=== PATIENT | male | born 1985 | race Caucasian/White ===

== ENCOUNTER 2017-10-24 18:25 | Inpatient (IN) | payer BC, OTHER ==
[2017-10-24] MEDS ORDERED: ALBU18HF2 IH (21:28)
== END 2017-10-24 20:55 | disposition short-term general hospital (02) | DRG 897 ==
LOC: SRC 19:33
PROVIDERS: ADMIT Internal Medicine; ATTEND Internal Medicine
DX: F19.239 Other psychoactive substance dependence with withdrawal, unspecified (principal); Z75.3 Unavailability and inaccessibility of health-care facilities
CPT/HCPCS: A4663

== ENCOUNTER 2017-10-24 21:06 | Inpatient (IN) | payer BC, OTHER ==
--- NOTE | 2017-10-23 23:30 | NUR ---
admitted new patient to room 221, patient more alert, confused,and forgetful,1:1 sitter at bedside for safety,patient on o2 mask 7 l/m,continue pulse ox o2 sat 92%, mild expiratory wheezes,can not keep himself still,restless but co operative with care, sinus tachy on monitor,HOB elevated,sob on exertion. Addendum: 10/25/17 at 0401 by MELQUIADES DEL RIO RN wrong date and time entry ,pls disregard.
[~2017-10-24] VITALS: Ht 180.3 cm; Wt 89.4 kg
--- NOTE | 2017-10-24 21:14 | NUR ---
Patient BIB [facility] staff for altered mental status and cough. Initial vital signs indicated that the patient's pulse oximetry was low, patient was immediately placed on high-flow O2 with poor effect. Patient A/O x2, states that he recently ingested approximately 8 oxycodone pills. To room 3A. MILAGROS notified, orders received.
[2017-10-24] MEDS ORDERED: ALBU18HF2 IH (21:28)
[2017-10-24] MEDS ORDERED: ALBUTEROL SULFATE 2.5 MG/3 ML NEBU NEB ONE (21:30)
[2017-10-24] MEDS ORDERED: NALOXONE HCL 0.4 MG/ML AMPUL IV ONE (21:30)
[2017-10-24] MEDS ORDERED: IV NORMAL SALINE 1000 ML BAG IV ONE (21:30)
[2017-10-24] MEDS ORDERED: IPRATROPIUM BROMIDE 0.5 MG/2.5 ML NEBU NEB ONE (21:30)
[2017-10-24 21:41] LABS: *BILIRUBIN,URIN NEGATIVE (NEGATIVE); *BLOOD, URINE Trace-lysed (NEGATIVE); *CLARITY,URINE SLIGHTLY CLOUDY (CLEAR); *COLOR,URINE YELLOW (YELLOW); *KETONES,URINE NEGATIVE (NEGATIVE); *PROTEIN,URINE 1+ (NEGATIVE); *UROBILINOGEN,URINE 0.2 E.U./dl (NORMAL); LEUKOCYTE ESTERASE ,URINE NEGATIVE (NEGATIVE); NITRITE, URINE NEGATIVE (NEGATIVE); UGLUCOSE NEGATIVE (NEGATIVE)
[2017-10-24] MEDS ORDERED: NALOXONE HCL 0.4 MG/ML AMPUL ONE (21:44)
[2017-10-24 21:45] LABS: RBC,URINE 0-3 /HPF (0-3); WBC,URINE 0-3 /HPF (0-3)
[2017-10-24 21:46] LABS: BACTERIA,URINE NONE SEEN /HPF (NONE SEEN); SQUAMOUS EPITHELIAL CELL,UR FEW /HPF (NONE SEEN)
[2017-10-24] MEDS ORDERED: ALBUTEROL SULFATE 2.5 MG/ 0.5 ML NEBU ONE (21:47)
[2017-10-24] MEDS ORDERED: IPRATROPIUM BROMIDE 0.5 MG/2.5 ML NEBU ONE (21:47)
[2017-10-24 21:48] LABS: *AMPHETAMINE, URINE NEGATIVE (NEGATIVE); *BARBITURATE, URINE NEGATIVE (NEGATIVE); *CANNABINOID, URINE NEGATIVE (NEGATIVE); *COCCAINE, URINE NEGATIVE (NEGATIVE); *OPIATE, URINE POSITIVE (NEGATIVE); *PHENCYCLIDINE SCREEN,URINE NEGATIVE (NEGATIVE)
[2017-10-24 21:48] LABS: BASOPHILS % (AUTO) 0.1 % (0.0-2.0); EOSINOPHILS % (AUTO) 0.1 % (0.0-7.0); HEMATOCRIT 41.2 % (40-50); HEMOGLOBIN 13.8 G/DL (14.0-18.0); LYMPHOCYTES # (AUTO) 0.9 K/UL (0.8-4.8); LYMPHOCYTES % (AUTO) 7.8 % (20.5-51.5); MEAN CORPUSCULAR HEMOGLOBIN 31.5 UUG (27.0-31.0); MEAN CORPUSCULAR HGB CONC 34 g/dL (32.0-37.0); MONOCYTES # (AUTO) 0.7 K/UL (0.1-1.30); NEUTROPHILS # (AUTO) 9.8 K/UL (1.8-8.9); PLATELET COUNT (AUTO) 198 K/UL (150-450); RED BLOOD CELL COUNT(AUTO) 4.39 MIL/UL (4.7-6.1); WHITE BLOOD COUNT (AUTO) 11.4 K/UL (4.0-11.2)
[2017-10-24 21:53] LABS: CARBON DIOXIDE 30 mmol/L (21-32); CHLORIDE 103 mmol/L (98-107); CREATININE 1.2 mg/dL (0.6-1.3); GLUCOSE 100 mg/dL (74-106); POTASSIUM 4.7 mmol/L (3.5-5.1); UREA NITROGEN, BLOOD 17 mg/dL (7-18)
--- NOTE | 2017-10-24 21:54 | NUR ---
Patient observed with unsteady gait, walking and falling in the ER. Patient had stood up and walked away from his bed without staff's knowledge causing his IV to come out. Patient assisted to restroom and IV D/C'ed. Catheter intact and site benign. Pressure and 4x4 gauze applied to site. No bleeding noted.
[2017-10-24] MEDS ORDERED: ONDANSETRON ODT 4 MG TAB.RAPDIS SL ONE (22:00)
[2017-10-24 22:05] LABS: ETHANOL < 3 MG/DL (0-0)
[2017-10-24 22:08] LABS: ALANINE AMINOTRANSFERASE 39 U/L (16-63); ALKALINE PHOSPHATASE 35 U/L (50-136); ASPARTATE AMINOTRANSFERASE 36 U/L (15-37); BILIRUBIN,DIRECT 0.2 mg/dL (0.0-0.2); BILIRUBIN,TOTAL 0.5 mg/dL (0.2-1.0); TOTAL PROTEIN, SERUM 6.4 g/dL (6.4-8.2)
[2017-10-24 22:09] LABS: ACETAMINOPHEN < 2.0 ug/mL (10-30)
[2017-10-24] MEDS ORDERED: ONDANSETRON ODT 4 MG TAB.RAPDIS ONE (22:14)
--- NOTE | 2017-10-24 22:24 | NUR ---
Patient out of bed, has been non-compliant with O2 therapy constantly moving the mask to his forehead or removing it completely. Education provided, patient is forgetful and confused.
[2017-10-24] MEDS ORDERED: NITROGLYCERIN OINT 1 GM PACKET TP ONE ×2 (22:45→22:58)
[2017-10-24] MEDS ORDERED: FUROSEMIDE 20 MG/2 ML VIAL IV ONE (22:45)
[2017-10-24] MEDS ORDERED: FUROSEMIDE 40 MG/4 ML VIAL ONE (22:59)
--- NOTE | 2017-10-24 23:11 | NUR ---
Patient continues to get out of bed and remove devices despite education, Nursing Office Correspondent notified who will obtain 1:1 sitter upon admission.
[2017-10-24] MEDS ORDERED: Z GUARD REMEDY PASTE 57 GM TUBE TOP PRN (23:45)
[2017-10-24] MEDS ORDERED: ONDANSETRON 4 MG/2 ML VIAL IV PRN (23:45)
[2017-10-24] MEDS ORDERED: MAGNESIUM HYDROXIDE 30 ML LIQUID UDC PO PRN (23:45)
--- NOTE | 2017-10-24 23:49 | NUR ---
Pt. admitted to TELE, under care of Yadiel Escobar. Belongs List completed
--- NOTE | 2017-10-24 23:50 | NUR ---
admitted new patient to room 221 with 1:1 sitter at bedside for safety,patient restless,forgetful but co operative, sinus tachy cardia on tele monitor,hob elevated placed on o2 7l/m vi mask,closely monitor.
[2017-10-25] VITALS: BP 122/65
[2017-10-25] MEDS ORDERED: LEVOFLOXACIN 500 MG/D5W 500 MG in PREMIXED 1 EACH IV SCH ×2
[2017-10-25 00:18] LABS: ABG BASE EXCESS 1.1 mmol/L; ABG HCO3 25.9 mmol/L; ABG PCO2 41.6 mmHg (35.0-45.0); ABG PH 7.412 (7.350-7.450); ABG PO2 62.9 mmHg (75.0-100.0); ABG SITE RIGHT RADIAL; ABG TOTAL HEMOGLOBIN 14.7 G/dL (13.5-18.0); COHb 2.1 % (0.5-1.5); MetHb 0.3 % (0.0-1.5); O2Hb 90.6 % (94.0-97.0)
--- NOTE | 2017-10-25 00:20 | NUR ---
ABG done pO2 62.9 ,no critical value noted,increase o2 to 8l/m via mask,patient vomited bile emesis about 50 ml,Zofran 4 mg iv admin
[2017-10-25] MEDS: ASPIRIN 325 MG TABLET PO SCH ×2 (00:26→08:19)
[2017-10-25] MEDS ORDERED: LEVOFLOXACIN 500 MG/D5W 100 ML ONE (00:35)
[2017-10-25] MEDS ORDERED: ASPIRIN 325 MG TABLET ONE (00:37)
[2017-10-25] MEDS ORDERED: ONDANSETRON 4 MG/2 ML VIAL ONE (01:10)
[2017-10-25] MEDS: ALBUTEROL SULFATE 2.5 MG/ 0.5 ML NEBU NEB SCH ×4 (01:24→19:17)
[2017-10-25] MEDS ORDERED: ALBUTEROL SULFATE 2.5 MG/ 0.5 ML NEBU ONE (01:31)
--- NOTE | 2017-10-25 03:35 | NUR ---
patient calm,asleep,closely monitor.
--- NOTE | 2017-10-25 06:00 | NUR ---
PATIENT STABLE ON O2 5L/M VIA NASAL CANNULA,BP 132/70, FREQUENT COUGHING, SPLITTING OUT, THICK, GREENISH SPUTUM ,SENT TO LAB FOR CULTURE,CONTINUE BEDSIDE TELE MONITOR,SINUS TACHY RATE 105 BPM,CONTINUE 1:1 SITTER FOR SAFETY.NO NAUSEA NOTED.
[2017-10-25 06:58] LABS: BASOPHILS % (AUTO) 0.1 % (0.0-2.0); EOSINOPHILS % (AUTO) 0.1 % (0.0-7.0); HEMATOCRIT 40.3 % (36.7-47.1); HEMOGLOBIN 13.7 g/dL (12.5-16.3); LYMPHOCYTES # (AUTO) 0.8 K/uL (20.0-40.0); LYMPHOCYTES % (AUTO) 5.9 % (20.5-51.5); MEAN CORPUSCULAR HEMOGLOBIN 32.3 uug (23.8-33.4); MEAN CORPUSCULAR HGB CONC 34 g/dL (32.5-36.3); MEAN CORPUSCULAR VOLUME 94.5 fL (73.0-96.2); MONOCYTES # (AUTO) 0.9 K/uL (2.0-10.0); MONOCYTES % (AUTO) 6.4 % (0.0-11.0); NEUTROPHILS # (AUTO) 12.1 K/uL (1.8-8.9); NEUTROPHILS % (AUTO) 87.5 % (38.5-71.5); PLATELET COUNT (AUTO) 197 K/uL (152-348); RED BLOOD CELL COUNT(AUTO) 4.26 MIL/uL (4.06-5.63); WHITE BLOOD COUNT (AUTO) 13.9 K/uL (3.6-10.2)
[2017-10-25 07:31] LABS: CREATININE 1.1 mg/dL (0.6-1.3); MAGNESIUM 1.7 mg/dL (1.8-2.4); PHOSPHOROUS 2.9 mg/dL (2.5-4.9); POTASSIUM 3.6 mmol/L (3.5-5.1)
[2017-10-25] MEDS: IPRATROPIUM BROMIDE 0.5 MG/2.5 ML NEBU NEB SCH ×3 (07:40→19:17)
[2017-10-25 08:23] LABS: THYROID STIMULATING HORMONE 0.123 mIU/mL (0.358-3.740)
[2017-10-25 11:12] VITALS: BP 133/78
--- NOTE | 2017-10-25 11:58 | NUR ---
CLINICAL PHARMACY NOTE:VANCOMYCIN DOSING Request for vancomycin dosing on 32 y/o male 5'11" 197 lbs for possible pneumonia Temp 100.3 BUN 17 Scr 1.1 WBC 13.9 also on Zosyn and Levaquin start vancomycin 1250mg IVPB q10h estimated trough 14.66. Will order trough level prior to 4th dose. Will continue to monitor.
[2017-10-25 12:13] LABS: ABG HCO3 26.1 mmol/L; ABG PCO2 39.1 mmHg (35.0-45.0); ABG PH 7.443 (7.350-7.450); ABG PO2 58.2 mmHg (75.0-100.0); ABG SITE RIGHT RADIAL; ABG TOTAL HEMOGLOBIN 14.2 G/dL (13.5-18.0); COHb 1.4 % (0.5-1.5); MetHb 0.4 % (0.0-1.5); O2Hb 89.7 % (94.0-97.0); VENT MODE Nasal Cannula
[2017-10-25] MEDS: PIPERACILLIN SODIUM/TAZOBACTAM 4.5 G in IV DEXTROSE 5% 50 ML IV SCH ×2 (12:36→20:05)
[2017-10-25] MEDS: VANCOMYCIN IV 1,250 MG in IV DEXTROSE 5% 500 ML IV SCH ×2 (13:52→23:27)
--- NOTE | 2017-10-25 14:46 | NUR ---
PT PLACED ON HIGH FLOW NASAL CANNULA 40LPM, 70% FIO2 POST ABG. SOB AND MODERATE ACCESSORY MUSCLE USE NOTED. RN NOTIFIED. WILL CONTINUE TO MONITOR AND TITRATE HIGH FLOW TOLERATED.
[2017-10-25] MEDS: MAGNESIUM SULFATE/D5W 100 ML IV SCH ×2 (15:59→16:53)
--- NOTE | 2017-10-25 18:32 | NUR ---
PT PLACED ON HIGH FLOW NASAL CANNULA POST ABG. SOB AND MODERATE ACCESSORY MUSCLE USE NOTED. PT SAT 99% IN NO ACUTE DISTRESS AT THIS TIME, ALL SAFETY AND COMFORT MEASURES MAINTAINED THROUGHOUT SHIFT, 1:1 SITTER FOR SAFETY, CALL LIGHT IN REACH
--- NOTE | 2017-10-25 19:45 | NUR ---
PATIENT AWAKE IN BED, WATCHING TV. SITTER AT BEDSIDE FOR SAFETY. DENIES PAIN OR DISCOMFORT. ON HIGH PRESSURE O2. H/L INTACT AND PATENT. CALL LIGHT IN REACH. ALL NEEDS ATTENDED.
[2017-10-25] MEDS ORDERED: IV NORMAL SALINE 250 ML IV ONE (19:46)
[2017-10-25] MEDS ORDERED: IOHEXOL 350 100 ML INFUS..BTL ONE (19:46)
[2017-10-25] MEDS ORDERED: NORMAL SALINE FLUSH 10 ML DISP.SYRIN ONE (19:46)
[2017-10-25 20:30] VITALS: BP 121/74
--- NOTE | 2017-10-25 20:45 | NUR ---
PATIENTS TEMPERATURE 101.7. PATIENT GIVEN TYLENOL 650MG PO PRN FOR FEVER AND COOLING MEASURES APPLIED. WILL CONTINUE TO MONITOR.
[2017-10-25] MEDS: ACETAMINOPHEN 325 MG TABLET PO PRN (20:47)
[2017-10-25] MEDS: LACTOBACILLUS RHAMNOSUS GG 1 EACH CAPSULE PO SCH (20:47)
--- NOTE | 2017-10-25 22:00 | NUR ---
PATIENTS TEMPERATURE TRENDING DOWN. NOTIFIED ZABRINA MICHELLE THAT PATIENT HAS BEEN RUNNING FEVER. PATIENT IS GOING FOR CTA ANGIO AND WILL BLOOD CULTURES DONE ONCE BACK. SIGNS CLEANER NOTIFIED.
[2017-10-26] MEDS: IPRATROPIUM BROMIDE 0.5 MG/2.5 ML NEBU NEB SCH ×4 (00:49→19:21)
[2017-10-26] MEDS: ALBUTEROL SULFATE 2.5 MG/ 0.5 ML NEBU NEB SCH ×4 (00:49→19:21)
[2017-10-26] MEDS: LEVOFLOXACIN 500 MG/D5W 500 MG in PREMIXED 1 EACH IV SCH (01:31)
[2017-10-26 04:00] VITALS: BP 128/83
--- NOTE | 2017-10-26 04:15 | NUR ---
PATIENT AWAKE IN BED. DENIES ANY SOB. FEVER 102.9. PATIENT GIVEN TYLENOL 650MG PO PRN FOR TEMPERATURE AND COOLING MEASURES APPLIED. DENIES PAIN OR DISCOMFORT. CONTINUED ON HIGH FLOW O2. CALL LIGHT IN REACH. ALL NEEDS ATTENDED. WILL CONTINUE TO MONITOR AND ASSESS.
[2017-10-26] MEDS: ACETAMINOPHEN 325 MG TABLET PO PRN (04:17)
[2017-10-26] MEDS: PIPERACILLIN SODIUM/TAZOBACTAM 4.5 G in IV DEXTROSE 5% 50 ML IV SCH ×3 (04:28→19:59)
--- NOTE | 2017-10-26 06:00 | NUR ---
PATIENT REMAINS SR ON TELE. WILL CONTINUE TO MONITOR.
[2017-10-26 06:35] LABS: POTASSIUM 3.2 mmol/L (3.5-5.1)
[2017-10-26 08:00] VITALS: BP 119/78
[2017-10-26] MEDS: LACTOBACILLUS RHAMNOSUS GG 1 EACH CAPSULE PO SCH ×2 (08:23→20:37)
[2017-10-26] MEDS: ASPIRIN 325 MG TABLET PO SCH (08:24)
[2017-10-26] MEDS: VANCOMYCIN IV 1,250 MG in IV DEXTROSE 5% 500 ML IV SCH (08:26)
[2017-10-26 11:25] VITALS: BP 115/98
[2017-10-26] MEDS: HYDROCODONE/APAP 5-325MG TABLET PO PRN (11:33)
[2017-10-26] MEDS: methylPREDNISolone SOD SUCC 125 MG/2 ML VIAL IV SCH ×2 (14:10→21:12)
--- NOTE | 2017-10-26 14:24 | NUR ---
CLINICAL PHARMACY NOTE:VANCOMYCIN DOSING Subjective: to continue vancomycin dosing on 32 y/o male '" 197 lbs for possible pneumonia Objective: height 5''' weight 197 lbs Temp 102.9 BUN 15 Scr 1.0 WBC 13.9 (10/25) Trough pending today at 1830 Assessment/Plan Will continue vancomycin 1250mg IVPB q10h estimated trough 14.66. Trough due tonight at 1830. Will check trough and adjust as needed. Will continue to monitor. Addendum: 10/26/17 at 2031 by BRENDON MCGOWAN ADM VANCOMYCIN TROUGH @ 18:30 WAS 5.9 INCREASED DOSE TO 1500 AND CHANGED FREQUENCY TO Q8H. REORDERED ANOTHER TROUGH PRIOR TO 4TH DOSE 10/27 @ 20:30 WILL CONTINUE TO FOLLOW
[2017-10-26 15:21] VITALS: BP 118/75
--- NOTE | 2017-10-26 15:38 | NUR ---
CONTINUE WITH PAIN MANAGEME, NO SIGNS OF PAIN OR DISTRESS
[2017-10-26] MEDS ORDERED: POTASSIUM CHLORIDE 20 MEQ TAB.PRT.SR PO ONE (16:15)
--- NOTE | 2017-10-26 16:56 | NUR ---
PT REMAINS ON HIGH FLOW NASAL CANNULA, ABLE TO TITRATE TO 35 LPM, 50% FIO2. PT TOLERATING WELL AT THIS TIME. WILL CONTINUE TO MONITOR.
[2017-10-26 19:39] VITALS: BP 132/84
--- NOTE | 2017-10-26 20:00 | NUR ---
RECEIVED PATIENT AWAKE IN BED, WITH SITTER AT BEDSIDE. PATIENT IS A/O X3. DENIES PAIN OR DISCOMFORT. DENIES ANY SOB. ON O2 HIGH FLOW. NO RESP. DISTRESS NOTED. ON TELE SR. VSS. H/L INTACT AND PATENT, NOTED TO RIGHT FA #20 GAUGE. BED ALARM ON. CALL LIGHT IN REACH. ALL NEEDS ATTENDED. WILL CONTINUE TO MONITOR.
[2017-10-26] MEDS: VANCOMYCIN IV 1,500 MG in IV DEXTROSE 5% 500 ML IV SCH (20:57)
[2017-10-27] VITALS: BP 134/82
[2017-10-27] MEDS: IPRATROPIUM BROMIDE 0.5 MG/2.5 ML NEBU NEB SCH ×4 (00:54→19:16)
[2017-10-27] MEDS: ALBUTEROL SULFATE 2.5 MG/ 0.5 ML NEBU NEB SCH ×4 (00:54→19:16)
[2017-10-27] MEDS: PIPERACILLIN SODIUM/TAZOBACTAM 4.5 G in IV DEXTROSE 5% 50 ML IV SCH ×3 (03:59→20:14)
[2017-10-27 04:00] VITALS: BP 99/62
[2017-10-27] MEDS: VANCOMYCIN IV 1,500 MG in IV DEXTROSE 5% 500 ML IV SCH ×3 (04:05→21:21)
[2017-10-27] MEDS: methylPREDNISolone SOD SUCC 125 MG/2 ML VIAL IV SCH ×3 (05:10→21:21)
--- NOTE | 2017-10-27 06:06 | NUR ---
PATIENT AWAKE IN BED. SITTER AT BEDSIDE. SLEPT AT INTERVALS THROUGHOUT THE NIGHT. VSS. AFEBRILE. DENIES PAIN OR DISCOMFORT. NO RESP. DISTRESS NOTED, CONTINUED ON O2 HIGH FLOW. ON TELE SR. CALL LIGHT IN REACH. ALL NEEDS ATTENDED. WILL CONTINUE TO MONITOR.
[2017-10-27 06:07] LABS: *BASOS 0 % (Not Estab.); *COMMENTS Note: (.); *EOS 0 % (Not Estab.); *HCT 41.2 % (37.5-51.0); *HGB 13.8 g/dL (13.0-17.7); *IMMATURE GRANULOCYTES 0.1 x10E3/uL (0.0-0.1); *IMMATURE GRANULOCYTES 1 % (Not Estab.); *LYMPHOCYTES 7 % (Not Estab.); *LYMPHOCYTES ABSOLUTE 0.9 x10E3/uL (0.7-3.1); *MCH 32.2 pg (26.6-33.0); *MCHC 33.5 g/dL (31.5-35.7); *MCV 96 fL (79-97); *MONOCYTES 7 % (Not Estab.); *NEUTROPHILS 85 % (Not Estab.); *NEUTROPHILS ABSOLUTE 12.3 x10E3/uL (1.4-7.0); *PLT 201 x10E3/uL (150-379); *RBC 4.29 x10E6/uL (4.14-5.80); *RDW 13.7 % (12.3-15.4); *WBC 14.3 x10E3/uL (3.4-10.8)
[2017-10-27 07:17] LABS: CREATININE 1.1 mg/dL (0.6-1.3); POTASSIUM 3.6 mmol/L (3.5-5.1)
--- NOTE | 2017-10-27 08:00 | NUR ---
Awake, alert, oriented x 4. On high flow O2 with O2 sat of 93%. 1:1 sitter at bedside
[2017-10-27] MEDS: ASPIRIN 325 MG TABLET PO SCH (09:07)
[2017-10-27] MEDS: LACTOBACILLUS RHAMNOSUS GG 1 EACH CAPSULE PO SCH ×2 (09:08→20:23)
--- NOTE | 2017-10-27 12:00 | NUR ---
Did not eat lunch. Noted decreased in O2 sat when flat on bed. Maintained on high flow O2 at 35L/NC at 55% FIO2 with O2 sat of 91-93%
[2017-10-27 12:08] LABS: *HELPER T-LYMPH MARKR(CD4)ABSO 239 /uL (359-1519); *HELPER T-LYNPH MARKER CD4)% 26.6 % (30.8-58.5)
--- NOTE | 2017-10-27 14:57 | NUR ---
CLINICAL PHARMACY NOTE:VANCOMYCIN DOSING Subjective: to continue vancomycin dosing on 32 y/o male 5'11" 197 lbs for possible pneumonia Objective: height 5''' weight 197 lbs Temp 99.7 BUN 17 Scr 1.1 WBC 14.3 (10/25) trough pending tonight 2029 Assessment/Plan Will continue schedule of 1500mg q8hr today with trough pending tonight at 2029. Rn endorsed to hold if trough >20. Will check trough in am and adjust as needed. Will continue to follow VANCOMYCIN TROUGH @ 18:30 WAS 5.9 INCREASED DOSE TO 1500 AND CHANGED FREQUENCY TO Q8H. REORDERED ANOTHER TROUGH PRIOR TO 4TH DOSE 10/27 @ 20:30 WILL CONTINUE TO FOLLOW Addendum: 10/27/17 at 1503 by JIMBO FELDER please disregard note in all caps, was from previous note
--- NOTE | 2017-10-27 18:27 | NUR ---
Ate some dinner, poor appetite. High flow O2 at 35L with O2 sat of 92%. 1:1 sitter at bedside
[2017-10-27 20:00] VITALS: BP 121/75
--- NOTE | 2017-10-27 20:00 | NUR ---
patient on high flow o2 ,50%,at 35l/m tolerated well no sob noted,pulse ox monitor at bedside,patient calm and co operative, forgetful, 1:1 sitter at bedside for safety,closely monitor.
[2017-10-27] MEDS: HYDROCODONE/APAP 5-325MG TABLET PO PRN (23:49)
[2017-10-27] MEDS: LEVOFLOXACIN 500 MG/D5W 500 MG in PREMIXED 1 EACH IV SCH ×3 (23:49)
[2017-10-28] MEDS: IPRATROPIUM BROMIDE 0.5 MG/2.5 ML NEBU NEB SCH ×4 (01:00→20:31)
[2017-10-28] MEDS: ALBUTEROL SULFATE 2.5 MG/ 0.5 ML NEBU NEB SCH ×4 (01:00→20:32)
[2017-10-28] MEDS: PIPERACILLIN SODIUM/TAZOBACTAM 4.5 G in IV DEXTROSE 5% 50 ML IV SCH ×3 (03:23→20:00)
[2017-10-28] MEDS: VANCOMYCIN IV 1,500 MG in IV DEXTROSE 5% 500 ML IV SCH ×3 (04:32→18:12)
[2017-10-28 05:00] VITALS: BP 113/63
[2017-10-28] MEDS: methylPREDNISolone SOD SUCC 125 MG/2 ML VIAL IV SCH (05:48)
--- NOTE | 2017-10-28 07:00 | NUR ---
Patient still on high flow O2 via NC, tolerating well. IV antibiotic tolerated, IV line intact & patent. Fairly rested but no acute resp distress. 1:1!sitter in room for patient's safety.
[2017-10-28 08:00] VITALS: BP 118/62
[2017-10-28] MEDS: LACTOBACILLUS RHAMNOSUS GG 1 EACH CAPSULE PO SCH ×2 (09:34→21:54)
[2017-10-28] MEDS: ASPIRIN 325 MG TABLET PO SCH (09:34)
--- NOTE | 2017-10-28 11:15 | NUR ---
CLINICAL PHARMACY NOTE:VANCOMYCIN DOSING Subjective: to continue vancomycin dosing on 32 y/o male 5'11" 197 lbs for possible pneumonia Objective: height 5'11'' weight 197 lbs Temp 98.2 BUN 17(10/27) Scr 1.1(10/27) WBC 14.3 (10/25) Vancomycin trough 12.9 10/27 at 2030 Assessment/Plan Since Vancomycin trough is under 15, will increase dose to 1500mg IV every 7 hrs(second dose today at 1200) and draw trough by 4th dose(ordered for tomorrow at 0130) for expected trough around 16. Will monitor and follow daily.
[2017-10-28 11:28] LABS: CREATININE 1.1 mg/dL (0.6-1.3); POTASSIUM 3.6 mmol/L (3.5-5.1)
[2017-10-28 11:39] LABS: BASOPHILS % (AUTO) 0.2 % (0.0-2.0); HEMATOCRIT 40.1 % (36.7-47.1); HEMOGLOBIN 13.6 g/dL (12.5-16.3); LYMPHOCYTES # (AUTO) 2.2 K/uL (20.0-40.0); LYMPHOCYTES % (AUTO) 13.6 % (20.5-51.5); MEAN CORPUSCULAR HEMOGLOBIN 31.8 uug (23.8-33.4); MEAN CORPUSCULAR HGB CONC 34 g/dL (32.5-36.3); MEAN CORPUSCULAR VOLUME 93.8 fL (73.0-96.2); MONOCYTES % (AUTO) 12.7 % (0.0-11.0); NEUTROPHILS # (AUTO) 11.7 K/uL (1.8-8.9); NEUTROPHILS % (AUTO) 73.5 % (38.5-71.5); PLATELET COUNT (AUTO) 204 K/uL (152-348); RED BLOOD CELL COUNT(AUTO) 4.28 MIL/uL (4.06-5.63)
[2017-10-28 12:19] LABS: BAND % (MANUAL) 5 % (0-10); LYMPHOCYTES % (MANUAL) 13 % (20-40); MONOCYTES % (MANUAL) 13 % (2-10); MYELOCYTES % 1 % (0-0); NEUTROPHILS % (MANUAL) 68 % (42-75)
[2017-10-28] MEDS ORDERED: methylPREDNISolone SOD SUCC 125 MG/2 ML VIAL IV SCH (14:00)
[2017-10-28] MEDS: methylPREDNISolone SOD SUCC 40 MG/ML VIAL IV SCH ×2 (14:11→21:54)
--- NOTE | 2017-10-28 19:38 | NUR ---
PT IS CALM, COOPERATIVE, CONFUSED, THINKS THAT A PHONE WAS LOST BUT PT HAS NO PHONE DOCUMENTED ON THE BELONGINGS LIST. PT TEACHING ABOUT VANCOMYCIN WAS GIVEN. PT VERBALIZES UNDERSTANDING AND ALLOWS CARE. PT STABLE VITAL SIGNS.
[2017-10-28 20:00] VITALS: BP 124/78
--- NOTE | 2017-10-28 23:54 | NUR ---
PT ON CONT HIGH FLOW SYSTEM WITH NASAL CANNULA @ 50% @ 35L/M , DOING WELL, WITH SAT 94-97%, WITH NO RESP. DISTRESS NOTED, PULSE OXY AT BEDSIDE , HR GETS LOW 49 WHEN PATIENT FALLS ASLEEP, BUT DOING WELL, SITTER PRESENT. Sandra GOLDBERGP Addendum: 10/28/17 at 2356 by CORY OTERO RT Amended: Links added.
[2017-10-29] MEDS: LEVOFLOXACIN 500 MG/D5W 500 MG in PREMIXED 1 EACH IV SCH (00:28)
[2017-10-29] MEDS: IPRATROPIUM BROMIDE 0.5 MG/2.5 ML NEBU NEB SCH ×4 (01:30→19:31)
[2017-10-29] MEDS: ALBUTEROL SULFATE 2.5 MG/ 0.5 ML NEBU NEB SCH ×4 (01:30→19:31)
[2017-10-29] MEDS: VANCOMYCIN IV 1,500 MG in IV DEXTROSE 5% 500 ML IV SCH ×4 (02:00→23:54)
[2017-10-29] MEDS: PIPERACILLIN SODIUM/TAZOBACTAM 4.5 G in IV DEXTROSE 5% 50 ML IV SCH ×3 (03:45→21:00)
[2017-10-29 04:00] VITALS: BP 120/68
[2017-10-29] MEDS: methylPREDNISolone SOD SUCC 40 MG/ML VIAL IV SCH ×3 (05:13→21:00)
[2017-10-29 08:00] VITALS: BP 121/74
[2017-10-29] MEDS: LACTOBACILLUS RHAMNOSUS GG 1 EACH CAPSULE PO SCH ×2 (09:22→21:00)
[2017-10-29] MEDS: ASPIRIN 325 MG TABLET PO SCH (09:22)
--- NOTE | 2017-10-29 11:35 | NUR ---
CLINICAL PHARMACY NOTE:VANCOMYCIN DOSING Subjective: to continue vancomycin dosing on 32 y/o male 5'11" 197 lbs for possible pneumonia Objective: height 5'11'' weight 197 lbs Temp 99.3 BUN 17(10/27) Scr 1.1(10/27) WBC 14.3 (10/25) Vancomycin trough 15.1 Assessment/Plan Since Vancomycin trough within therapeutic range, will continue same dose of vanco 1500mg IV every 7 hrs for today. Will monitor and follow daily.
--- NOTE | 2017-10-29 16:24 | NUR ---
PATIENT BEEN ASKING FOR HIS BELONGINGS DURING THE DAY. I CHECKED THE BELONGINGS LIST FROM ADMISSION AND IT ONLY STATES HIS CLOTHING THAT HE HAS ON HIS ROOM. PATIENT VERBALIZED THAT HE DROVE TO THE HOSOITAL ON HIS BUIK WHICH IT IS PARKED ON THE PARKING STRUCTURE, AND HE IS CONCERN THAT HIS CELLPHONE, KEYS AND WALLET HAVE BEEN LOST. HE IS BECOMING ANXIOUS PER RADHA VILA. I CALLED [facility] THREE TIMES, AND THEY HAVE NOT GAVE AN ANSWER SINCE THE NOON. FINALLY, I TALKED TO CHARGE NURSE AND ASKED FOR HER HELP, SHE SAID THEY WILL GO AND LOOK FOR IT ON THE STORAGE, THAT WAS 1615.
--- NOTE | 2017-10-29 16:57 | NUR ---
[facility] CHARGE NURSE CALLED CONFIRMING THAT THERE IS NO CELL PHONE, WALLET AND CAR KEYS ON HIS BELONGINGS. IT IS ALSO STATED ON THE BELONGING LIST. PATIENT STATED THAT HE DROVE HIMSELF ON HIS BUICK WHITE CAR. I CALLED [facility] TO CHECK THE CAR ON THE PARKING LOT, AND THERE IS NO CAR. I TRIED TO CALL FAMILY, THERE IS NO FAMILY NUMBER TO CALL. JACOB CHARGE NURSE AWARE.
[2017-10-29 17:00] VITALS: BP 119/65
--- NOTE | 2017-10-29 18:31 | NUR ---
PATIENT HAV BEEN IN BED WATCHING, A LITTLE ANXIOUS ABOUT HIS BELONGINGS. WE NEED TO CONTINUE REMINDING HIM TO KEEP HIS NC ON PLACE. SAFETY WAS PROVIDED DURING THE DAY, ALL NEEDS MET BY THE STAFF. WILL CONTINUE MONITORING.
--- NOTE | 2017-10-29 19:45 | NUR ---
PATIENT ALERT WITH EPISODE OF ANXIETY, LOOK FOR HIS BELONGINGS SUCH CAR KEYS, PATIENT STATED THAT HE DROVE HIMSELF IN TO BE ADMITTED TO [facility], AND HIS CAR IS WHITE SAR[place], AM RN DROVE AROUND THE PARKING LOT AND NOT FIND THE PATIENT CAR, CALLED [facility] AND STATED THAT PATIENT DID NOT DROVE HIMSELF, AND THEY DONT HAVE HIS KEYS. CONT TO REORIENT PATIENT. CONT 1;1 SITTER FOR SAFETY.
[2017-10-29 20:00] VITALS: BP 144/72
[2017-10-30] MEDS: LEVOFLOXACIN 500 MG/D5W 500 MG in PREMIXED 1 EACH IV SCH (00:22)
[2017-10-30] MEDS: IPRATROPIUM BROMIDE 0.5 MG/2.5 ML NEBU NEB SCH ×4 (00:49→19:44)
[2017-10-30] MEDS: ALBUTEROL SULFATE 2.5 MG/ 0.5 ML NEBU NEB SCH ×4 (00:49→19:43)
[2017-10-30] MEDS: HYDROCODONE/APAP 5-325MG TABLET PO PRN (01:51)
[2017-10-30] MEDS: PIPERACILLIN SODIUM/TAZOBACTAM 4.5 G in IV DEXTROSE 5% 50 ML IV SCH ×3 (04:37→20:45)
[2017-10-30] MEDS: VANCOMYCIN IV 1,500 MG in IV DEXTROSE 5% 500 ML IV SCH ×3 (05:13→21:44)
[2017-10-30] MEDS: methylPREDNISolone SOD SUCC 40 MG/ML VIAL IV SCH ×3 (05:43→21:56)
[2017-10-30 06:37] VITALS: BP 107/71
--- NOTE | 2017-10-30 07:00 | NUR ---
PATIENT SLEPT ON AND OFF, STILL WITH CONFUSION, KEPT LOOKING FOR HIS BELONGINGS CONT TO ORIENT, CONT 1;1 SITTER. FOR SAFETY. PATIENT EXPRESS ON LEAVING THE FACILITY TO LOOK FOR HIS CAR. CONT TO MONITOR.
--- NOTE | 2017-10-30 07:30 | NUR ---
RECEIVED PATIENT AWAKE IN BED, WITH SITTER AT BEDSIDE. PATIENT IS A/O X3. DENIES PAIN OR DISCOMFORT. DENIES ANY SOB. ON O2 NO RESP. DISTRESS NOTED.H/L INTACT AND PATENT, BED ALARM ON. CALL LIGHT IN REACH. ALL NEEDS ATTENDED. WILL CONTINUE TO MONITOR.
[2017-10-30] MEDS: ASPIRIN 325 MG TABLET PO SCH (08:04)
[2017-10-30] MEDS: LACTOBACILLUS RHAMNOSUS GG 1 EACH CAPSULE PO SCH ×2 (08:04→21:56)
[2017-10-30 11:06] LABS: BASOPHILS % (AUTO) 0.2 % (0.0-2.0); EOSINOPHILS % (AUTO) 0.2 % (0.0-7.0); HEMATOCRIT 43.1 % (36.7-47.1); HEMOGLOBIN 14.4 g/dL (12.5-16.3); LYMPHOCYTES # (AUTO) 1.7 K/uL (20.0-40.0); LYMPHOCYTES % (AUTO) 12.6 % (20.5-51.5); MEAN CORPUSCULAR HEMOGLOBIN 31.9 uug (23.8-33.4); MEAN CORPUSCULAR HGB CONC 33 g/dL (32.5-36.3); MEAN CORPUSCULAR VOLUME 95.5 fL (73.0-96.2); MONOCYTES # (AUTO) 0.9 K/uL (2.0-10.0); MONOCYTES % (AUTO) 6.8 % (0.0-11.0); NEUTROPHILS # (AUTO) 10.7 K/uL (1.8-8.9); NEUTROPHILS % (AUTO) 80.2 % (38.5-71.5); PLATELET COUNT (AUTO) 224 K/uL (152-348); RED BLOOD CELL COUNT(AUTO) 4.51 MIL/uL (4.06-5.63); WHITE BLOOD COUNT (AUTO) 13.4 K/uL (3.6-10.2)
[2017-10-30 11:15] LABS: CREATININE 1.1 mg/dL (0.6-1.3)
[2017-10-30 11:47] LABS: BAND % (MANUAL) 4 % (0-10); EOSINOPHILS % (MANUAL) 1 % (0-8); LYMPHOCYTES % (MANUAL) 15 % (20-40); METAMYELOCYTES % 1 % (0-1); MONOCYTES % (MANUAL) 8 % (2-10); MYELOCYTES % 2 % (0-0); NEUTROPHILS % (MANUAL) 69 % (42-75)
[2017-10-30 12:12] VITALS: BP 115/67
--- NOTE | 2017-10-30 13:34 | NUR ---
CLINICAL PHARMACY NOTE:VANCOMYCIN DOSING Subjective: to continue vancomycin dosing on 32 y/o male 5'11" 197 lbs for possible pneumonia Objective: height 5'11'' weight 197 lbs Temp 98.2 BUN 17(10/27) Scr 1.1(10/27) WBC 14.3 (10/25) Assessment/Plan Will continue same dose of vanco 1500mg IV every 7 hrs for today. Will monitor and follow daily.
[2017-10-30 15:51] VITALS: BP 126/75
--- NOTE | 2017-10-30 19:00 | NUR ---
PATIENT AWAKE, VERY RESPONSIVE, PATIENT MORE ALERT THIS EVENING, WATCHING TV, CONT ON 1;1 SITTER, PATIENT HAS EPISODE OF COUGHING, CONT HHN TX PER ORDER, DENIES PAIN AT THIS TIME. CONT 1;1 SITTER.
[2017-10-30 20:24] VITALS: BP 110/68
[2017-10-31] MEDS: HYDROCODONE/APAP 5-325MG TABLET PO PRN (00:11)
[2017-10-31] MEDS: LEVOFLOXACIN 500 MG/D5W 500 MG in PREMIXED 1 EACH IV SCH (00:47)
--- NOTE | 2017-10-31 01:00 | NUR ---
PATIENT NOTED WITH RESTLESS, MEDICATED FOR PAIN DUE TO COMPLAIN OF PAIN ON BACK, GIVEN FOOD AND JUICES, ASSISTED WITH TOILETING FOR COMFORT, CONT ON 1;1 SITTER FOR SAFETY, PATIENT LOOKING FOR BELONGINGS AGAIN, REORIENT PATIENT THAT BELONGINGS WAS AT HIS POSSESSION, SITTER WALKED PATIENT IN HALLWAYS, CONT TO MONITOR.
[2017-10-31] MEDS: IPRATROPIUM BROMIDE 0.5 MG/2.5 ML NEBU NEB SCH ×5 (01:48→19:07)
[2017-10-31] MEDS: ALBUTEROL SULFATE 2.5 MG/ 0.5 ML NEBU NEB SCH ×5 (01:48→19:07)
[2017-10-31] MEDS: PIPERACILLIN SODIUM/TAZOBACTAM 4.5 G in IV DEXTROSE 5% 50 ML IV SCH ×3 (03:28→20:21)
[2017-10-31] MEDS: VANCOMYCIN IV 1,500 MG in IV DEXTROSE 5% 500 ML IV SCH ×3 (04:10→16:43)
[2017-10-31] MEDS ORDERED: LORAZEPAM 2 MG/1 ML VIAL IV ONE (04:30)
--- NOTE | 2017-10-31 04:44 | NUR ---
PATIENT RESTLESS, AND AGITATED, PULLED IV LINES, WANTING TO GO HOME, NOTIFY DR. FIGUEREDO WITH ORDER, CONT 1;1 SITTER FOR SAFETY.
[2017-10-31] MEDS: methylPREDNISolone SOD SUCC 40 MG/ML VIAL IV SCH ×3 (06:12→20:16)
[2017-10-31 06:13] LABS: ABG BASE EXCESS -2.8 mmol/L; ABG HCO3 20.9 mmol/L; ABG PCO2 33.4 mmHg (35.0-45.0); ABG PH 7.415 (7.350-7.450); ABG PO2 60.4 mmHg (75.0-100.0); ABG SITE RIGHT BRACHIAL; ABG TOTAL HEMOGLOBIN 14.2 G/dL (13.5-18.0); MetHb 0.1 % (0.0-1.5); O2Hb 90.2 % (94.0-97.0); VENT MODE Nasal Cannula
[2017-10-31 06:14] VITALS: BP 132/71
[2017-10-31 08:00] VITALS: BP 132/71
[2017-10-31] MEDS: ASPIRIN 325 MG TABLET PO SCH (08:09)
[2017-10-31] MEDS: LACTOBACILLUS RHAMNOSUS GG 1 EACH CAPSULE PO SCH ×2 (08:09→20:16)
--- NOTE | 2017-10-31 10:01 | NUR ---
PATIENT STILL HAS EPISODE OF CONFUSION AND ANXIETY, CONT TO REORIENT THE PATIENT, CONT 1;1 SITTER FOR SAFETY, NO COMPLAIN OF PAIN, REORIENT PATIENT NOT TO PULLED HIS IV LINES. CONT TO MONITOR, OXYGEN 2LITER NC, OXYGEN SAT 93-97% CONT TO MONITOR.
[2017-10-31 11:26] VITALS: BP 126/79
--- NOTE | 2017-10-31 14:04 | NUR ---
CLINICAL PHARMACY NOTE:VANCOMYCIN DOSING Subjective: to continue vancomycin dosing on 32 y/o male 5'11" 197 lbs for possible pneumonia Objective: height 5'11'' weight 197 lbs Temp 98.5 BUN 17(10/27) Scr 1.1(10/27) WBC 14.3 (10/25) Assessment/Plan Will continue same dose of vanco 1500mg IV every 7 hrs for today. Will monitor and follow daily.
--- NOTE | 2017-10-31 14:41 | NUR ---
PT WALK IN THE HALLWAY WITHOUT O2 ,TOLERATED WELL.
[2017-10-31 15:29] VITALS: BP 109/70
--- NOTE | 2017-10-31 19:00 | NUR ---
RECEIVED PATIENT AWAKE STILL CONFUSED, LOOKING FOR HIS BELONGINGS AGAIN, REORIENT PATIENT THAT BELONGINGS IS WITH HIS , PATIENT HAS ERRATIC MOVEMENT, GETS UP LOOKS FOR THINGS, CAUSING IV LINE TO PULLED OUT OR DISLODGE, REORIENT PATIENT, PATIENT WILL COOPERATE FOR FEW MINUTES BUT WILL CONTINUE THE RESTLESSNESS BEHAVIOR, CONT ON 1;1 SITTER. OXYGEN SAT WNL AT 2LITERS NC, CONT TO MONITOR.
[2017-10-31 21:02] VITALS: BP 123/70
[2017-11-01] MEDS: LEVOFLOXACIN 500 MG/D5W 500 MG in PREMIXED 1 EACH IV SCH (00:10)
[2017-11-01] MEDS ORDERED: VANCOMYCIN HCL 500 MG VIAL ONE ×2 (00:29→00:52)
[2017-11-01] MEDS ORDERED: VANCOMYCIN 1000 MG VIAL ONE ×2 (00:29→00:52)
[2017-11-01] MEDS: VANCOMYCIN IV 1,500 MG in IV DEXTROSE 5% 500 ML IV SCH ×3 (00:29→14:13)
[2017-11-01] MEDS: IPRATROPIUM BROMIDE 0.5 MG/2.5 ML NEBU NEB SCH ×3 (01:17→14:23)
[2017-11-01] MEDS: ALBUTEROL SULFATE 2.5 MG/ 0.5 ML NEBU NEB SCH ×3 (01:17→14:23)
--- NOTE | 2017-11-01 01:30 | NUR ---
PATIENT SLEPT ON AND OFF, NO COMPLAIN OF PAIN, NO SOB NO CHEST PAIN NO CONGESTION, WITH EPISODE OF NON PRODUCTIVE COUGH, ASSISTED WITH TOILETING, STILL CONFUSED CONTINUE TO REORIENT THE PATIENT. CONT 1;1 SITTER FOR SAFETY.
[2017-11-01] MEDS: PIPERACILLIN SODIUM/TAZOBACTAM 4.5 G in IV DEXTROSE 5% 50 ML IV SCH ×2 (04:37→12:29)
[2017-11-01 06:43] VITALS: BP 124/75
[2017-11-01] MEDS: methylPREDNISolone SOD SUCC 40 MG/ML VIAL IV SCH (08:40)
[2017-11-01] MEDS: LACTOBACILLUS RHAMNOSUS GG 1 EACH CAPSULE PO SCH (08:40)
[2017-11-01] MEDS ORDERED: PRED50TA PO (10:15)
[2017-11-01] MEDS ORDERED: LEVO750T21 PO (10:15)
[2017-11-01] MEDS ORDERED: IPRA0.2S6 NEB (10:15)
[2017-11-01] MEDS ORDERED: LACT1CAP57 PO (10:15)
[2017-11-01] MEDS: HYDROCODONE/APAP 5-325MG TABLET PO PRN (10:19)
--- NOTE | 2017-11-01 10:50 | NUR ---
PT'S 1:1 SITTER VERBALIZED TO ME THAT THE PT'S O2 SAT IS 86%, " I CHECKED THE O2 TWICE". PT APPEARS CALM, PINK, NO SIGNS OF RESPIRATORY DISTRESS, ANXIOUS 01/28 B/C WILL HAVE THEIR BABY MAYBE TODAY. THIS IS CAUSING PT ANXIETY BUT BREATHING AND CALM. PT PUT ON 2L O2 NASAL CANNULA. RE-ASSESSED PT O2 SAT IS 98% PT CONTINUED ON NASAL CANULA
[2017-11-01 11:05] VITALS: BP 114/77
[2017-11-01] MEDS: ACETAMINOPHEN 325 MG TABLET PO PRN (14:04)
--- NOTE | 2017-11-01 14:08 | NUR ---
CLINICAL PHARMACY NOTE:VANCOMYCIN DOSING Subjective: to continue vancomycin dosing on 32 y/o male 5'11" 197 lbs for possible pneumonia Objective: height 5'11'' weight 197 lbs Temp 98.7 BUN 17(10/27) Scr 1.1(10/27) WBC 14.3 (10/25) Vanco trough level: 15.9 Assessment/Plan Since vanco trough level is within therapeutic range, will continue same dose of vanco 1500mg IV every 7 hrs for today. Will monitor and follow daily.
--- NOTE | 2017-11-01 16:56 | NUR ---
I CALLED PT'S ERIBERTO TO INFORM HER THAT PT IS LEAVING TO [facility] , IMANI AT THE FACILITY IS AWARE THAT HE WILL BE ARRIVING AT THE FACILITY TONIGHT HIS NUMBER IS , ADDRESS OF FACILITY IS [address] [place] [address]. [facility], [id number]. THE FACILITY WAS CALLED TO GIVE REPORT BUT IMANI STATES THAT REPORT IS UNNECESSARY.
--- NOTE | 2017-11-01 17:58 | NUR ---
PT DISCHARGED TO [facility]. PT LEFT WITH ALL BELONGINGS, MEDICATIONS, AND EXIT-CARE PACKET. PT IS CALM, COOPERATIVE, CONFUSED NEED ORIENTING, PT WAS ON ROOM AIR, IV REMOVED, INFORMED.
== END 2017-11-01 17:58 | disposition other institution (70) | DRG 177 ==
LOC: ER 21:07 → TELE 22:15 → MED 10-27 08:59
PROVIDERS: ADMIT Nurse Practitioner Acute Care; ATTEND Internal Medicine
DX: J15.0 Pneumonia due to Klebsiella pneumoniae (principal); J96.01 Acute respiratory failure with hypoxia; I21.A1 Myocardial infarction type 2; G92 Toxic encephalopathy; J81.1 Chronic pulmonary edema; I50.31 Acute diastolic (congestive) heart failure; I31.9 Disease of pericardium, unspecified; E44.1 Mild protein-calorie malnutrition; J21.9 Acute bronchiolitis, unspecified; I51.4 Myocarditis, unspecified; F17.210 Nicotine dependence, cigarettes, uncomplicated; F11.10 Opioid abuse, uncomplicated; J45.909 Unspecified asthma, uncomplicated; E88.09 Other disorders of plasma-protein metabolism, not elsewhere classified; Z68.27 Body mass index [BMI] 27.0-27.9, adult; B34.9 Viral infection, unspecified
CPT/HCPCS: 36415; 36600; 70030-TC; 71010; 71275; 80307; 80346; 80361; 83615; 83735; 84100; 84443; 85025; 85651; 86140; 86361; 87040; 87070; 87077; 87400; 87806; 93005; 93307; 94640; 94664; A4663; G0480; G0480-TC; J1940; J1956; J2060; J2310; J2405; J2543; J2920; J2930; J3370; J3475; J3490; J3590; J7030; J7050; J7060; Q0162; Q9967